=== PATIENT | female | born 1995 | race Caucasian/White ===

== ENCOUNTER 2016-11-16 03:06 | Emergency (ER) | payer MEDICAID, OTHER ==
[~2016-11-16] VITALS: Ht 167.6 cm; Wt 65.0 kg
[2016-11-16 03:13] VITALS: BP 137/68; PULSE 72; RESP 18; TEMP 98.9; O2SAT 99
[2016-11-16 04:44] VITALS: PULSE 95; RESP 18; O2SAT 99
--- NOTE | 2016-11-16 06:52 | PD ---
HPI Chief Complaint: Alcohol/Drug Intoxication Time Seen by Provider: 04:13 Travel History International Travel<30 days: No Contact w/Intl Traveler<30days: No Traveled to known affect area: No History of Present Illness HPI Patient is a 21 year old female who comes in intoxicated. Per EMS, she was found vomiting in the bathroom of a strip club. She reports drinking tonight. She provides no other history. [facility] Past Medical History Medical History: Denies Significant Hx Diminished Hearing: No Immunizations Current: Yes Tetanus Vaccination: Unknown Influenza Vaccination: No ?: Not LMP: CURRENT 11/15/2016; ON CONTROL : 2 Para: 2 Social History Alcohol Use: No Tobacco Use: Yes (1/2PPD) Substance Use: No Allergies-Medications (Allergen,Severity, Reaction): Coded Allergies: No Known Allergies (Verified , 11/16/16) Reported Meds & Prescriptions Reported Meds & Active Scripts Active No Active Prescriptions or Reported Medications Review of Systems ROS Limitations: Intoxication Physical Exam Narrative GENERAL: Lethargic, in no acute distress. AOB. SKIN: Focused skin assessment warm/dry. HEAD: Atraumatic. Normocephalic. No raccoon eyes or townsend signs. EYES: Pupils equal and round. No scleral icterus. No injection or drainage. ENT: No nasal bleeding or discharge. Mucous membranes pink and moist. NECK: Trachea midline. No JVD. CARDIOVASCULAR: Regular rate and rhythm. No murmur appreciated. RESPIRATORY: No accessory muscle use. Clear to auscultation. Breath sounds equal bilaterally. GASTROINTESTINAL: Abdomen soft, non-tender, nondistended. Hepatic and splenic margins not palpable. MUSCULOSKELETAL: No obvious deformities. No clubbing. No cyanosis. No edema. NEUROLOGICAL: No obvious cranial nerve deficits. Motor grossly within normal limits. Normal speech. Data Data Last Documented VS Vital Signs Date Time Temp Pulse Resp B/P Pulse Ox O2 Delivery O2 Flow Rate FiO2 11/16/16 04:44 95 18 99 Room Air 11/16/16 03:13 98.9 137/68 [facility] Medical Decision Making Medical Screen Exam Complete: Yes Emergency Medical Condition: Yes Medical Record Reviewed: Yes Differential Diagnosis intoxication vs drug overdose vs dehydration Narrative Course Patient is a 21 year old female who comes in intoxicated. She was very lethargic at first. Exam shows no signs of trauma. Patient observed in the ED. She started to become more awake, she admits to drinking too much. She denies any other substance use. She denies any complaints. She denies any trauma or pain. Patient will be discharged with a sober ride. Diagnosis Primary Impression: Alcohol intoxication Qualified Code: F10.920 - Alcohol intoxication, uncomplicated Patient Instructions: Alcohol Intoxication (ED), General Instructions Additional Instructions: Avoid alcohol use. Drink plenty of fluids. Follow up with your doctor. Scripts No Active Prescriptions or Reported Meds Disposition: 01 DISCHARGE HOME Condition: Stable Devika May MD November 16, 2016 06:52
== END 2016-11-16 13:33 | disposition home or self-care (01) ==
LOC: NEPC 03:06
DX: F10.920 Alcohol use, unspecified with intoxication, uncomplicated (principal); R11.10 Vomiting, unspecified; F17.210 Nicotine dependence, cigarettes, uncomplicated
CPT/HCPCS: 99284

== ENCOUNTER 2017-04-24 02:53 | Emergency (ER) | payer MEDICAID ==
[~2017-04-24] VITALS: Ht 177.8 cm; Wt 60.0 kg
[2017-04-24 02:58] VITALS: BP 171/67; PULSE 97; RESP 24
--- NOTE | 2017-04-24 03:11 | PD ---
HPI Chief Complaint: Alcohol/Drug Intoxication Time Seen by Provider: 03:10 Travel History International Travel<30 days: No Contact w/Intl Traveler<30days: No Traveled to known affect area: No History of Present Illness HPI Patient is a 21-year-old female presents with her sister for evaluation of intoxication. Apparently there were down at a bar, a local road were found intoxicated and police were called and they were escorted here by EMS. Patient is fairly belligerent on arrival, unable to provide any history but did deny any physical complaints. PFSH Past Medical History Medical History: Unable to Obtain Diminished Hearing: No Immunizations Current: Yes ?: Unknown : 2 Para: 2 Past Surgical History Surgical History: Unable to Obtain Social History Alcohol Use: No Tobacco Use: Yes (1/2PPD) Substance Use: No Allergies-Medications (Allergen,Severity, Reaction): Coded Allergies: No Known Allergies (Verified , 11/16/16) Reported Meds & Prescriptions Reported Meds & Active Scripts Active No Active Prescriptions or Reported Medications Review of Systems ROS Limitations: Intoxication Physical Exam Narrative GENERAL: Well-developed well-nourished no obvious distress. SKIN: Focused skin assessment warm/dry. No bruises no lacerations seen on her person. Examination performed with female nurse utility systems repairer operator present all times. HEAD: Atraumatic. Normocephalic. EYES: Pupils equal and round. No scleral icterus. No injection or drainage. ENT: No nasal bleeding or discharge. Mucous membranes pink and moist. NECK: Trachea midline. No JVD. CARDIOVASCULAR: Regular rate and rhythm. No murmur appreciated. RESPIRATORY: No accessory muscle use. Clear to auscultation. Breath sounds equal bilaterally. GASTROINTESTINAL: Abdomen soft, non-tender, nondistended. Hepatic and splenic margins not palpable. MUSCULOSKELETAL: No obvious deformities. No clubbing. No cyanosis. No edema. NEUROLOGICAL: Awake and alert. No obvious cranial nerve deficits. Motor grossly within normal limits. Normal speech. PSYCHIATRIC: Fairly belligerent, then somnolent and belligerent again. Data Data Last Documented VS Vital Signs Date Time Temp Pulse Resp B/P (MAP) Pulse Ox O2 Delivery O2 Flow Rate FiO2 04/24/17 04:05 102 20 124/88 (100) 100 Room Air MDM Medical Decision Making Medical Screen Exam Complete: Yes Emergency Medical Condition: Yes Differential Diagnosis Alcohol intoxication, substance abuse, agitated delirium. Narrative Course Patient roomed in emergency department, fairly belligerent on arrival she was be able to be redirected into the stretcher. History is very limited by her level of intoxication. She will be monitored in the emergency department for clinical sobriety. Medically there is no indication further workup at this time. Diagnosis Primary Impression: Alcohol intoxication Scripts No Active Prescriptions or Reported Meds Condition: Tyler Fried MD Apr 24, 2017 03:11
[2017-04-24 04:05] VITALS: BP 124/88; PULSE 102; RESP 20; O2SAT 100
== END 2017-04-24 09:19 | disposition home or self-care (01) ==
LOC: NEPE 02:53 → NEPD 09:19
DX: F10.129 Alcohol abuse with intoxication, unspecified (principal); F17.200 Nicotine dependence, unspecified, uncomplicated
CPT/HCPCS: 99283